=== PATIENT | male | born 1995 | race Caucasian/White ===

== ENCOUNTER 2017-06-25 09:41 | Emergency (ER) | payer MEDICAID, OTHER ==
[~2017-06-25] VITALS: Ht 182.9 cm; Wt 55.0 kg
[~2017-06-25 09:41] MED LIST: LORTA5 PO
[2017-06-25 09:43] VITALS: BP 127/64; PULSE 103; RESP 16; TEMP 98.2; O2SAT 100
[2017-06-25] MEDS ORDERED: VALA1TAB PO (09:57)
[2017-06-25] MEDS ORDERED: ACYC800T PO (10:12)
--- NOTE | 2017-06-25 10:15 | PD ---
HPI Chief Complaint: Medication Refill Request Time Seen by Provider: 10:05 Travel History International Travel<30 days: No Contact w/Intl Traveler<30days: No Traveled to known affect area: No History of Present Illness HPI 22-year-old male patient presents emergency department for medication to treat herpes simplex virus. Patient was just diagnosed with HSV on June 03 at [facility]. He was treated with Valacyclovir 1G for 7 days. The flare up subsided briefly then returned. The patient states the pain is so severe he is having trouble sleeping. Patient denies any other physiological complaints outside the pain associated with the penile herpetic lesions. There are 3 distinct herpetic lesions noted on the penile shaft. No purulent drainage noted. No urethral discharge noted. He denies any testicular pain or lesions. He denies any nausea, vomiting, diarrhea, fevers, chills, malaise, dysuria. Patient has no major medical history outside this new diagnosis. PFSH Past Medical History Autoimmune Disease: No Anxiety: No Depression: No Cardiovascular Problems: No Genitourinary: No Musculoskeletal: No Neurologic: No Psychiatric: No Respiratory: No Social History Alcohol Use: No Tobacco Use: No Substance Use: No Allergies-Medications (Allergen,Severity, Reaction): Coded Allergies: No Known Allergies (Unverified , 12/05/13) Reported Meds & Prescriptions Reported Meds & Active Scripts Active Tramadol (Tramadol HCl) 50 Mg Tab 50 Mg PO Q4H PRN Acyclovir 800 Mg Tab 800 Mg PO BID 5 Days Reported Valacyclovir (Valacyclovir HCl) Unknown Strength Tab Unknown Dose PO BID Review of Systems Except as stated in HPI: all other systems reviewed are Neg Skin: Positive Lesions (3 penile herpetic lesions) Physical Exam Narrative GENERAL: Well-nourished, well-developed patient. SKIN: Focused skin assessment warm/dry. HEAD: Normocephalic. EYES: No scleral icterus. No injection or drainage. NECK: Supple, trachea midline. No JVD or lymphadenopathy. CARDIOVASCULAR: Regular rate and rhythm without murmurs, gallops, or rubs. RESPIRATORY: Breath sounds equal bilaterally. No accessory muscle use. GENITOURINARY: Circumcised. Testes descended bilaterally without evidence of rotation. 2 vesicular lesions noted on the shaft of penis. 1 ulcerative lesion noted on the shaft of penis. No purulent drainage noted. No urethral discharge. GASTROINTESTINAL: Abdomen soft, non-tender, nondistended. Data Data Last Documented VS Vital Signs Date Time Temp Pulse Resp B/P (MAP) Pulse Ox O2 Delivery O2 Flow Rate FiO2 06/25/17 09:43 98.2 103 16 127/64 (85) 100 Orders Orders Ed Discharge Order (06/25/17 10:24) MDM Medical Decision Making Medical Screen Exam Complete: Yes Emergency Medical Condition: Yes Differential Diagnosis Differential diagnoses include but not limited to herpes, STI, penile cellulitis , pain Narrative Course Patient's physical exam is consistent with HSV. Patient was treated earlier this month on June 03 with initial valacyclovir regimen and found improvement while on medication, however pain is persistent posttreatment. Patient will be given a prescription for acyclovir for recurrent herpetic lesions. Patient will be given a short dose prescription of tramadol for pain management and instructions to keep the area clean and dry, wash hands frequently to avoid cross contamination, follow-up health department for further STI testing. Diagnosis Primary Impression: Herpes genitalia Qualified Codes: A60.01 - Herpesviral infection of penis Referrals: Primary Care Physician Patient Instructions: General Instructions, Genital Herpes Simplex (ED) Additional Instructions: Please return to emergency department if your symptoms return or worsen. Follow up with your primary care provider. Follow-up at the health department for further testing. Take medications as prescribed. Med/Other Pt SpecificInfo: Prescription(s) given Scripts Tramadol (Tramadol) 50 Mg Tab 50 MG PO Q4H Y for PAIN, #15 TAB 0 Refills Prov: Viktoria Nowak 06/25/17 Acyclovir (Acyclovir) 800 Mg Tab 800 MG PO BID for Mgmt Viral Infection for 5 Days, #10 TAB 0 Refills Prov: Kenyetta Villafana 06/25/17 Disposition: 01 DISCHARGE HOME Condition: Stable Kenyetta Villafana Jun 25, 2017 10:15
[2017-06-25] MEDS ORDERED: TRAM50TA PO ×2 (10:19→10:21)
== END 2017-06-25 10:52 | disposition home or self-care (01) ==
LOC: NEPD 09:41
DX: A60.01 Herpesviral infection of penis (principal)
CPT/HCPCS: 99283